=== PATIENT | female | born 1995 | race Caucasian/White ===

== ENCOUNTER 2021-10-09 07:43 | Day surgery (SDC) | payer OTHER ==
[~2021-10-09] VITALS: Ht 160 cm; Wt 81.6 kg
== END 2021-10-09 22:02 | disposition home or self-care (01) ==
LOC: ER 07:43 → CIR.AMB 12:11 → ICU-2 13:03 → CIR.AMB 13:03 → ICU-2 19:25 → CIR.AMB 22:02
PROVIDERS: ATTEND Specialist
DX: O02.1 Missed abortion (principal); Z20.822 Contact with and (suspected) exposure to COVID-19

== ENCOUNTER 2022-12-17 07:25 | Inpatient (IN) | payer OTHER ==
[~2022-12-17] VITALS: Ht 160 cm; Wt 63.5 kg
[2022-12-17] MEDS ORDERED: IRON236 MG PO (08:23)
[2022-12-17] MEDS ORDERED: PRENATAL CAPLE1 EAC1 PO (08:23)
== END 2022-12-19 14:12 | disposition home or self-care (01) | DRG 807 ==
LOC: LDR 07:25 → OB/GYN 07:25 → LDR 13:45 → OB/GYN 23:54
PROVIDERS: ADMIT Specialist; ATTEND Specialist
PROC: 10E0XZZ Delivery of Products of Conception, External Approach (ICD-10-PCS; principal; 2022-12-17)
PROC: 0UQG7ZZ Repair Vagina, Via Natural or Artificial Opening (ICD-10-PCS; 2022-12-17)
PROC: 4A1HXCZ Monitoring of Products of Conception, Cardiac Rate, External Approach (ICD-10-PCS; 2022-12-17)
DX: O71.4 Obstetric high vaginal laceration alone (principal); Z37.0 Single live birth; Z3A.39 39 weeks gestation of pregnancy; Z20.822 Contact with and (suspected) exposure to COVID-19

== ENCOUNTER 2025-01-02 09:12 | Inpatient (IN) | payer OTHER ==
[~2025-01-02] VITALS: Ht 162.6 cm; Wt 73.9 kg
[2025-01-02 09:10] VITALS: BP 110/68
[~2025-01-02 09:12] MED LIST: IRON236 MG PO; PRENATAL CAPLE1 EAC1 PO
[2025-01-02] MEDS ORDERED: RINGERS SOLUTION,LACTATED 1,000 ML IV SCH (09:45)
[2025-01-02] MEDS ORDERED: AMPICILLIN SODIUM 2,000 MG VIAL IV ONE (09:45)
[2025-01-02] MEDS ORDERED: OXYTOCIN 500 ML IV ONE (10:38)
[2025-01-02 10:56] LABS: BASO % 0.2 % (0.1-1.2); EOS # 0.10 (0.04-0.54); EOS % 1.1 % (0.7-7.0); LYMPH # 1.40 (1.18-3.74); LYMPH % 15.0 % (19.3-53.1); MEAN PLATELET VOLUME 9.40 fl (9.4-12.4); MONO # 0.65 (0.24-0.82); MONO % 7.0 % (4.7-12.5); NEUT # 7.12 (1.56-6.13); NEUT % 76.3 % (34.0-71.1); RED CELL DISTRIBUTION WIDTH 15.9 % (11.6-14.4)
[2025-01-02 11:20] LABS: INR 0.97
[2025-01-02 11:25] LABS: ALT/SGPT 16.0 U/L (12-78); AST/SGOT 19.0 U/L (15-37); BILIRUBIN TOTAL 0.86 mg/dL (0.3-1.2); BUN CREA RATIO 17.0 (7.0-25.0); CREATININE SERUM 0.46 mg/dL (0.55-1.02); GFR 158.44; GLOBULINA 3.5 G/DL (2.4-3.5); GLUCOSE FASTING 69.0 mg/dL (65-100); OSMOLALITY SERUM 276.0 MOSM/KG (275-295)
[2025-01-02] MEDS ORDERED: AMPICILLIN SODIUM 1,000 MG VIAL IV SCH (13:00)
[2025-01-02 13:39] VITALS: BP 116/74
[2025-01-02 15:16] VITALS: BP 117/64
[2025-01-02 18:45] VITALS: BP 102/66
[2025-01-03 00:42] VITALS: BP 102/68
[2025-01-03 08:31] VITALS: BP 111/77
[2025-01-03 16:00] VITALS: BP 109/72
[2025-01-04 00:31] VITALS: BP 92/67
[2025-01-04 08:43] VITALS: BP 112/70; O2SAT 98
== END 2025-01-04 11:56 | disposition home or self-care (01) | DRG 807 ==
LOC: OB/GYN 09:12 → LDR 09:12 → OB/GYN 22:00
PROVIDERS: ADMIT Specialist; ATTEND Specialist
PROC: 10E0XZZ Delivery of Products of Conception, External Approach (ICD-10-PCS; principal; 2025-01-02)
PROC: 4A1HXCZ Monitoring of Products of Conception, Cardiac Rate, External Approach (ICD-10-PCS; 2025-01-02)
DX: O80 Encounter for full-term uncomplicated delivery (principal); Z37.0 Single live birth; Z3A.37 37 weeks gestation of pregnancy